=== PATIENT | male | born 1970 | race African-American/Black ===

== ENCOUNTER 2019-12-27 17:24 | Emergency (ER) | payer OTHER ==
[~2019-12-27] VITALS: Ht 185.4 cm; Wt 93.0 kg
[2019-12-27] MEDS ORDERED: ULTRAM 50MG TAB50 MG PO (19:16)
[2019-12-27 19:24] VITALS: BP 130/94
== END 2019-12-27 19:25 | disposition home or self-care (01) ==
LOC: ER 17:24
DX: S61.210A Laceration without foreign body of right index finger without damage to nail, initial encounter (principal); W26.0XXA Contact with knife, initial encounter; Y93.89 Activity, other specified; Y92.89 Other specified places as the place of occurrence of the external cause; Y99.8 Other external cause status

== ENCOUNTER 2020-10-04 11:50 | Emergency (ER) | payer OTHER ==
[~2020-10-04] VITALS: Ht 185.4 cm; Wt 97.5 kg
[~2020-10-04 11:50] MED LIST: ULTRAM 50MG TAB50 MG PO
[2020-10-04] MEDS ORDERED: AMOXICILLIN500 M1 PO (13:51)
[2020-10-04 14:43] VITALS: BP 132/80
== END 2020-10-04 14:44 | disposition home or self-care (01) ==
LOC: ER 11:50
DX: J02.9 Acute pharyngitis, unspecified (principal); Z20.822 Contact with and (suspected) exposure to COVID-19; F12.90 Cannabis use, unspecified, uncomplicated